=== PATIENT | female | born 1970 | race Caucasian/White ===

== ENCOUNTER 2019-09-18 06:45 | Day surgery (SDC) | payer BC ==
[~2019-09-18] VITALS: Ht 157.5 cm; Wt 69.9 kg
[2019-09-18] MEDS ORDERED: CEFAZOLIN SOD 2 GM in D5W 50 ML IV ONE (07:00)
[2019-09-18] MEDS ORDERED: POLYMYXIN 500,000/BACIT.10,000 UNITS in NS IRR 1 L IR ONE (12:07)
[2019-09-18] MEDS ORDERED: LR 1,000 ML IV SCH (12:08)
[2019-09-18] MEDS ORDERED: HYDROmorphone 1 MG INJ. 1 MG/ML AMPUL IVP PRN ×2 (12:15)
[2019-09-18] MEDS ORDERED: ONDANSETRON HCL 4 MG/2 ML VIAL IVP PRN (12:15)
[2019-09-18] MEDS ORDERED: DEXTROSE 50% JECT 50 ML DISP.SYRIN ONE (13:45)
[2019-09-18] MEDS ORDERED: HYDROmorphone 2 MG/ML VIAL ONE (13:45)
[2019-09-18] MEDS ORDERED: ROCURONIUM BROMIDE 10 MG/ML (ZEMURON) ONE (13:45)
[2019-09-18] MEDS ORDERED: BUPIVACAINE /EPINEPHRINE/PF 0.5% 30 ML VIAL INJ ONE (13:45)
[2019-09-18] MEDS ORDERED: FUROSEMIDE 20 MG/2 ML VIAL ONE (13:45)
[2019-09-18] MEDS ORDERED: ROPIVACAINE HCL/PF 0.2% EPIDURAL 200 ML PLAST..BAG ONE (13:45)
[2019-09-18] MEDS ORDERED: BUPIVACAINE /PF 0.5% 30 ML VIAL ONE (13:45)
[2019-09-18] MEDS ORDERED: DESFLURANE 15 MIN GAS INH ONE (13:45)
[2019-09-18] MEDS ORDERED: LR 1,000 ML IV.SOLN IV ONE (13:45)
[2019-09-18] MEDS ORDERED: DEXAMETHASONE SOD PHOSPHATE 4 MG/ML VIAL ONE (13:45)
[2019-09-18] MEDS ORDERED: PROPOFOL 200MG/ 20ML VIAL (DIPRIVAN) IV ONE (13:45)
[2019-09-18] MEDS ORDERED: ONDANSETRON HCL 4 MG/2 ML VIAL ONE (13:45)
[2019-09-18] MEDS ORDERED: HYDROmorphone 1 MG INJ. 1 MG/ML AMPUL ONE (14:29)
[2019-09-18] MEDS ORDERED: HYDROcodone/ACETAMIN 5-325 MG TAB (NORCO/ VICODIN) PO PRN (15:00)
[2019-09-18] MEDS ORDERED: MORPHINE SULFATE 10 MG/ML VIAL IVP PRN (15:00)
[2019-09-18 16:05] VITALS: BP_SYST 95
--- NOTE | 2019-09-18 16:05 | NUR ---
PATIENT RECEIVED FROM PACU patient resting in bed, report received from PACU nurses at the bedside, family present, patient alert and oriented, educated application development team lead light system and plan of care, patient verbalized understanding, IV site intact, walker in place, gave patient some ice chips, no other needs addressed at this time, fall/safety precautions in place.
--- NOTE | 2019-09-18 18:47 | NUR ---
closing note patient resting in bed, patient alert and oriented, IV site intact, walker in place, patient does not want to eat at this time, no signs of distress at this time, no other needs addressed at this time, fall/safety precautions in place, will endorse report to [facility] shift nurse to continue with care, patient can ambulate with assist out of bed when patient is ready to, post op vitals are done. Addendum: 09/18/19 at 1850 by Meli Mancia RN patient has a q pump, 10ml/hr.
--- NOTE | 2019-09-18 19:10 | NUR ---
OPENING NOTES Receive report from morning shift nurse. Patient awake, AOx4, and son at bed side. No signs of respiratory distress and discomfort noted. Post operative, incisions are dry and clean, no active bleeding and drainage noted. On Room air with O2 sat of 97%, tolerating well. IVF infusing well, patency noted. On Q-pump of 10ml/hr, operating well. On Castro catheter, attached and secured, draining by gravity. On SCDs operating well. Call light within reach, patient educated to use call light when assistance is needed, patient verbalized understanding. Safety precautions in place. Bed locked and in lowest position. Bed alarm on. 2 side rails up. Will continue to monitor patient.
[2019-09-18] MEDS: ONDANSETRON HCL 4 MG/2 ML VIAL IVP PRN (19:27)
[2019-09-18 20:00] VITALS: BP_SYST 114
--- NOTE | 2019-09-18 21:00 | NUR ---
RN ROUNDS Patient lying in bed, denies pain and discomfort at this time. Castro catheter attached and secured, draining well by gravity. No signs of respiratory distress and discomfort noted. Will continue to monitor patient.
[2019-09-18] MEDS: OXYCODONE/ACETAMINOPHEN 5-325 TABLET PO PRN (23:05)
--- NOTE | 2019-09-18 23:05 | NUR ---
PAIN Patient awake, patient verbalized 6/10 lower abdominal pain. No signs of respiratory distress noted. Breathing even and unlabored. Safety precautions in place. Call light within reach. Will continue to monitor patient.
[2019-09-19] VITALS: BP_SYST 113
--- NOTE | 2019-09-19 00:30 | NUR ---
RN ROUNDS Patient asleep at this time. Castro catheter attached and secured, draining well by gravity. No signs of respiratory distress and discomfort noted. Breathing even and unlabored. Call light within reach. Safety precautions in place. Will continue to monitor patient.
--- NOTE | 2019-09-19 02:30 | NUR ---
NAUSEA Patient verbalized feeling nauseous, PRN anti nausea will be administered. Patient has no signs of respiratory distress noted. Breathing even and unlabored. Will continue to monitor
[2019-09-19] MEDS: ONDANSETRON HCL 4 MG/2 ML VIAL IVP PRN (02:41)
--- NOTE | 2019-09-19 03:02 | NUR ---
SPOKE WITH DR. NEETU AGUIRRE made aware of patients nausea, MD gave new order. Q-pumped leaking. MD verbalized its ''normal that Q-pupm leak, cover it with pads''MD ordered to discontinue walker
--- NOTE | 2019-09-19 03:14 | NUR ---
DC DRAKE Drake catheter removed at this time, catheter intact. Patient tolerated well.
[2019-09-19] MEDS ORDERED: METOCLOPRAMIDE HCL 10 MG/2 ML VIAL IVP PRN (03:15)
--- NOTE | 2019-09-19 03:45 | NUR ---
PT. AMBULATES w/ assist Patient ambulate to restroom with 1 RN assist, patient verbalized pain in the lower abdomen, ''like pressure'' but able to tolerate pain. Patient verbalized passing a little gas. No signs of respiratory distress noted.
[2019-09-19] MEDS ORDERED: METOCLOPRAMIDE HCL 10 MG/2 ML VIAL ONE (04:33)
--- NOTE | 2019-09-19 06:00 | NUR ---
PATIENT AMBULATES AND VOIDED.
--- NOTE | 2019-09-19 07:00 | NUR ---
CLOSING NOTES Patient awake. No signs of respiratory distress and discomfort noted. Breathing even and unlabored. On room air, tolerating well. IV site, patency noted. For discharged when stable. Call light within reach. Bed locked and lowest position. Safety precautions in place. All needs met throughout the shift will endorse to oncoming nurse for continuity of care.
--- NOTE | 2019-09-19 07:30 | NUR ---
INITIAL NOTE PT AWAKE, PAIN CONTROLLED AT THIS TIME. PT VOIDED 250CC, CLEAR AND YELLOW. CALL LIGHT WITHIN REACH, BED IN LOW AND LOCKED POSITION. EDUCATED PT ON SAFETY AND USE OF BED ALARM. PT VERBALIZED UNDERSTANDING, REFUSING BED ALARM AT THIS TIME.
[2019-09-19 08:00] VITALS: BP_SYST 106
[2019-09-19] MEDS: OXYCODONE/ACETAMINOPHEN 5-325 TABLET PO PRN ×2 (08:43→12:20)
--- NOTE | 2019-09-19 08:43 | NUR ---
PAIN MEDICATION PT COMPLAINING OF MODERATED PAIN. EDUCATED PT ON USES AND SIDE EFFECTS OF PERCOCET. PT VERBALIZED UNDERSTANDING. PRN PERCOCET FOR PAIN ADMINISTERED. WILL CONTINUE TO MONITOR.
--- NOTE | 2019-09-19 10:25 | NUR ---
Nutrition Update Lars Scale 18 noted. Pt admitted for stress incontinence. Diet: regular BMI: 28.2 kg/m2 RD to follow per nutrition care standards.
--- NOTE | 2019-09-19 10:30 | NUR ---
SECURITY ALARM INSTALLER met with Pt. and at bedside for DCPA. Pt. gave her verbal consent to speak with present regarding DCP and care. Pt. has PPO [facility] [employer] Apprentice through policy. PCP is Dr. Alvaro Anderson. Pt. lives at home with her [place], she was ambulatory, able manage her own ADLs with no assistance needed prior to admission. Pt. does not utilize any DME at home. Pt. has not previously utilized HH or SNF facility in the past, no preference as to provider if this is the recommendation. Pt. DC would be to return home with family at previous living arrangement. Pt. is pending DC order from doctor and intends to go home in private car with . Mother and are available to assist at home during recovery. No SS concern at this time. CM, SS and DCP to remain available as needed.
--- NOTE | 2019-09-19 10:40 | NUR ---
RN ROUNDS PT RESTING. PAIN CONTROLLED AT THIS TIME. PT INQUIRING WHEN SHE CAN GO HOME. INFORMED PT THAT MD WILL BE PAGED TO RECEIVE UPDATED ON POSSIBLE DISCHARGE. AT BEDSIDE.
--- NOTE | 2019-09-19 10:57 | NUR ---
DIANNE DE ANDA SPOKE WITH PENNIE FROM MD OFFICE. AWAITING RETURN CALL.
--- NOTE | 2019-09-19 12:50 | NUR ---
RN ROUNDS ASSISTED PT TO RESTROOM. PAIN CONTROLLED AT THIS TIME. AT BEDSIDE. PT ASSISTED BACK TO BED BY .
[2019-09-19 14:41] VITALS: BP_SYST 118
--- NOTE | 2019-09-19 15:00 | NUR ---
DISCHARGE NOTE DISCHARGE PACKET AND INSTRUCTIONS WITH PT. ALL BELONGINGS WITH PT. PAIN CONTROLLED AT THIS TIME. IV CATHETER REMOVED, CATHETER INTACT, NO BLEEDING. ID HOSPITAL BAND REMOVED. ESCORTED PT VIA WHEELCHAIR TO HOSPITAL PARKING LOT. TO DRIVE PT HOME.
[2019-09-19 15:04] VITALS: BP_SYST 115
== END 2019-09-19 15:00 | disposition home or self-care (01) ==
LOC: SDS 06:45 → SMU 06:45 → SDS 09-19 15:00
PROVIDERS: ATTEND Specialist
DX: N39.3 Stress incontinence (female) (male) (principal); N81.4 Uterovaginal prolapse, unspecified; N73.6 Female pelvic peritoneal adhesions (postinfective); N36.8 Other specified disorders of urethra; R94.31 Abnormal electrocardiogram [ECG] [EKG]; Z88.0 Allergy status to penicillin; Z79.899 Other long term (current) drug therapy; Z98.82 Breast implant status
CPT/HCPCS: 51992; 57250; 57267; 57283; 58552; 74018; 88302; 88307; C1727; C1771; J0690; J1100; J1170 ×2; J1940; J2270; J2405 ×2; J2704; J2765; J3490; J7060; J7120; E0190